=== PATIENT | female | born 1975 | race American Indian/Alaskan Native ===

== ENCOUNTER 2016-09-25 09:36 | Emergency (ER) | payer MEDICAID, OTHER ==
--- NOTE | 2016-09-25 09:58 | Emergency Department Report ---
Chief Complaint: Abdominal Pain Stated Complaint: POSS MISCARRIAGE Time Seen by Provider: 09/25/16 09:53 - HPI History of Present Illness: Patient is a 41-year-old female presents to the ED complaining of brownish vaginal discharge. Patient states LMP period as 08/12/2016. Patient states she had a confirmed on September 21 measuring about 4 weeks gestation. Patient states vaginal spotting began Sunday and got worse on Sunday.She did admit to mild nausea one episode of vomiting that happened Sunday. She denies suicidal chills/abdominal pain/dizziness/20 vision - ROS Review of Systems: Resident HPI - Exam Vital Signs: Vital Signs 09/25/16 09:41 Temperature 98.2 F Pulse Rate 73 Respiratory 20 Rate Blood Pressure 116/77 O2 Sat by Pulse 100 Oximetry Physical Exam: GENERAL: Alert and oriented x3, no apparent distress, Normal Gait, atraumatic. HEART: S1, S2 present, regular rate and rhythm without murmur ABDOMEN: No organomegaly was noted,Positive bowel sounds, soft, and non- distended. . Nontender to palpation on all Quadrants, NO CVA tenderness. MSE screening note: Focused history and physical exam performed. Due to findings the following was ordered: ED Medical Decision Making - Medical Decision Making Urinalysis, tests ordered. Ultrasound ordered. Patient waiting to be seen by a provider. ED Disposition for MSE Condition: Stable Instructions: Abdominal Pain (ED)
[2016-09-25 10:32] LABS: Basophils % (Auto) 0.3 % (0.0-1.8); Eosinophils % (Auto) 2.3 % (0.0-4.3); Hematocrit 40.3 % (30.3-42.9); Hemoglobin 13.5 gm/dl (10.1-14.3); Mean Corpuscular HGB Conc 33 % (30-34); Mean Corpuscular Hemoglobin 31 pg (28-32); Mean Corpuscular Volume 93 fl (79-97); Platelet Count 259 K/mm3 (140-440); Red Blood Count 4.32 M/mm3 (3.65-5.03); Red Cell Distribution Width 14.3 % (13.2-15.2); White Blood Count 9.6 K/mm3 (4.5-11.0)
[2016-09-25 10:40] LABS: Alanine Aminotransferase 29 units/L (7-56); Albumin 4.2 g/dL (3.9-5); Albumin/Globulin Ratio 1.3 %; Alkaline Phosphatase 49 units/L (35-129); Anion Gap 18 mmol/L; Blood Urea Nitrogen 6 mg/dL (7-17); Carbon Dioxide 23 mmol/L (22-30); Chloride 99.7 mmol/L (98-107); Glucose 125 mg/dL (65-100); Lipase 24 units/L (13-60); Potassium 3.5 mmol/L (3.6-5.0); Sodium 137 mmol/L (137-145); Total Protein 7.4 g/dL (6.3-8.2)
[2016-09-25 10:43] LABS: Bilirubin,Urine NEG (Negative); Blood,Urine NEG (Negative); Ketones,Urine NEG (Negative); Leukocyte Esterase,Urine SM (Negative); Mucus,Urine FEW /HPF; Nitrite,Urine NEG (Negative); Protein,Urine <15 mg/dL mg/dL (Negative); Urobilinogen,Urine < 2.0 mg/dL (<2.0)
--- NOTE | 2016-09-25 12:45 | Ultrasound Report ---
ULTRASOUND OB LESS THAN 14 WEEKS FETUS ULTRASOUND OB TRANSVAGINAL HISTORY: Vaginal bleeding, beta-hCG level 6070. TECHNIQUE: Transabdominal and transvaginal ultrasound with color doppler interrogation. The uterus measures 12 x 6 x 8 cm. A large submucosal fibroid in the right lateral wall measures 6.2 x 4.2 x 3.6 cm. The endometrial stripe is poorly imaged secondary to the large fibroid. The endometrium appears to measure approximately 1 cm in thickness. No intrauterine or heart tones could be demonstrated during this exam. The right ovary measures 4.1 x 2.1 x 2.7 cm. The left ovary measures 2.8 x 1.8 x 3.0 cm. No adnexal cyst or mass is identified. No pelvic fluid collection. IMPRESSION: No intrauterine is detected on ultrasound. The endometrial stripe is poorly imaged secondary to a large submucosal fibroid in the right lateral wall. This may represent a spontaneous . Close interval followup is recommended.
[2016-09-25 19:00] VITALS: BP 117/72
--- NOTE | 2016-09-27 21:02 | Emergency Department Report ---
Entered by ARTIS BRYANT, acting as scribe for TAM PAIGE PA. HPI - General Chief Complaint: Abdominal Pain Time Seen by Provider: 09/25/16 09:53 - HPI HPI: 41-year-old female that is about 4 weeks with no significant PMHx presents to the ED c/o brownish vaginal discharge for 3 days. Patient reports associated vaginal spotting that began 3 days ago, worsening 2 days ago and mild 3/10 lower pelvic cramping. She also reports mild nausea and one episode of vomiting 2 days ago, but she denies any vomiting today, fever, chills, chest pain, SOB, abdominal pain, dizziness, and vision changes. Patient states she had a confirmed on September 21, 2016 measuring about 4 weeks in gestation. LMP 08/12/2016. [facility] ED Past Medical Hx - Past Medical History Previous Medical History?: No - Surgical History Past Surgical History?: No Additional Surgical History: c section 2005 - Social History Smoking Status: Current Every Day Smoker Substance Use Type: None - Medications Home Medications: Home Medications Medication Instructions Recorded Confirmed Last Taken Type Naproxen Sodium (Nf) [Anaprox DS] 550 mg PO BID PRN #20 tablet 02/24/13 Unknown Rx Fluconazole [Diflucan TAB] 100 mg PO QDAY #1 tablet 09/25/16 Unknown Rx Nitrofurantoin [place]/M-Cryst 100 mg PO Q12HR #10 capsule 09/25/16 Unknown Rx [Macrobid CAP] ED Review of Systems ROS: Stated complaint: POSS MISCARRIAGE Other details as noted in HPI Comment: All other systems reviewed and negative Constitutional: denies: chills, fever Eyes: denies: eye pain, eye discharge, vision change ENT: denies: ear pain, throat pain Respiratory: denies: cough, shortness of breath, wheezing Cardiovascular: denies: chest pain, palpitations Endocrine: no symptoms reported Gastrointestinal: nausea (mild). denies: abdominal pain, vomiting, diarrhea Genitourinary: discharge (brown), other (mild lower pelvic cramping). denies: urgency, dysuria Musculoskeletal: denies: back pain, joint swelling, arthralgia Skin: denies: rash, lesions Neurological: denies: headache, weakness, paresthesias Physical Exam - Physical Exam Vital Signs: Vital Signs 09/25/16 09:41 Temperature 98.2 F Pulse Rate 73 Respiratory 20 Rate Blood Pressure 116/77 O2 Sat by Pulse 100 Oximetry General: GENERAL: Patient is alert and oriented x 3. No apparent distress, normal gait, atraumatic. Physical Exam: HEAD: Head is normocephalic and atraumatic. EYES: Extraocular movements are intact. EARS: Symmetrical, atraumatic, non tender. NOSE: Nose symmetrical, nontender. Nares appeared normal. MOUTH:Mouth is well hydrated and without lesions. NECK: Supple. Non edematous, no carotid bruits. No lymphadenopathy or thyromegaly. LUNGS: Symmetrical with respiration. No wheezing, rales or crackles, CTAB. HEART: Regular rate and rhythm with normal S1/S2 present. No murmurs, rubs, or gallops. GENITOURINARY: External genitalia without erythema, exudate or discharge. Vaginal vault is without discharge. Cervix is of normal color without lesion. Cervical OS is closed. No bleeding noted. Uterus is noted to be of normal size and nontender. No cervical motion tenderness. No masses are palpated. The adnexa are without masses or tenderness. ABDOMEN: Soft, nondistended. Nontender to palpation on all quadrants. No organomegaly was noted,Positive bowel sounds, soft, and non-distended. No CVA tenderness. EXTREMITIES/MUSCULOSKELETAL: ROM intact, 2+ pulses in UE/LE, no pitting edema SKIN: Warm and dry. No lesions, ulceration or induration present NEUROLOGIC: No focal deficit. ED Course Vital Signs 09/25/16 09:41 Temperature 98.2 F Pulse Rate 73 Respiratory 20 Rate Blood Pressure 116/77 O2 Sat by Pulse 100 Oximetry ED Medical Decision Making - Lab Data Result diagrams: 09/25/16 09:57 09/25/16 09:57 Lab Results 09/25/16 09/25/16 09/25/16 Range/Units 09:57 09:57 09:57 WBC 9.6 (4.5-11.0) K/mm3 RBC 4.32 (3.65-5.03) M/mm3 Hgb 13.5 (10.1-14.3) gm/dl Hct 40.3 (30.3-42.9) % MCV 93 (79-97) fl MCH 31 (28-32) pg MCHC 33 (30-34) % RDW 14.3 (13.2-15.2) % Plt Count 259 (140-440) K/mm3 Lymph % (Auto) 27.6 (13.4-35.0) % [place] % (Auto) 5.7 (0.0-7.3) % Eos % (Auto) 2.3 (0.0-4.3) % Baso % (Auto) 0.3 (0.0-1.8) % Lymph # 2.7 (1.2-5.4) K/mm3 [place] # 0.6 (0.0-0.8) K/mm3 Eos # 0.2 (0.0-0.4) K/mm3 Baso # 0.0 (0.0-0.1) K/mm3 Seg Neutrophils % 64.1 (40.0-70.0) % Seg Neutrophils # 6.2 (1.8-7.7) K/mm3 Sodium 137 (137-145) mmol/L Potassium 3.5 L (3.6-5.0) mmol/L Chloride 99.7 (98-107) mmol/L Carbon Dioxide 23 (22-30) mmol/L Anion Gap 18 mmol/L BUN 6 L (7-17) mg/dL Creatinine 0.6 L (0.7-1.2) mg/dL Estimated GFR > 60 ml/min BUN/Creatinine Ratio 10.00 % Glucose 125 H (65-100) mg/dL Calcium 9.0 (8.4-10.2) mg/dL Total Bilirubin 0.30 (0.1-1.2) mg/dL AST 23 (5-40) units/L ALT 29 (7-56) units/L Alkaline Phosphatase 49 (35-129) units/L Total Protein 7.4 (6.3-8.2) g/dL Albumin 4.2 (3.9-5) g/dL Albumin/Globulin Ratio 1.3 % Lipase 24 (13-60) units/L HCG, Qual Positive (Negative) HCG, Quant (0-4) mIU/mL Urine Color (Yellow) Urine Turbidity (Clear) Urine pH (5.0-7.0) Ur Specific [place] (1.003-1.030) Urine Protein (Negative) mg/dL Urine Glucose (UA) (Negative) mg/dL Urine Ketones (Negative) mg/dL Urine Blood (Negative) Urine Nitrite (Negative) Urine Bilirubin (Negative) Urine Urobilinogen (<2.0) mg/dL Ur Leukocyte Esterase (Negative) Urine WBC (Auto) (0.0-6.0) /HPF Urine RBC (Auto) (0.0-6.0) /HPF U Epithel Cells (Auto) (0-13.0) /HPF Urine Mucus /HPF 09/25/16 09/25/16 Range/Units 09:58 10:06 WBC (4.5-11.0) K/mm3 RBC (3.65-5.03) M/mm3 Hgb (10.1-14.3) gm/dl Hct (30.3-42.9) % MCV (79-97) fl MCH (28-32) pg MCHC (30-34) % RDW (13.2-15.2) % Plt Count (140-440) K/mm3 Lymph % (Auto) (13.4-35.0) % [place] % (Auto) (0.0-7.3) % Eos % (Auto) (0.0-4.3) % Baso % (Auto) (0.0-1.8) % Lymph # (1.2-5.4) K/mm3 [place] # (0.0-0.8) K/mm3 Eos # (0.0-0.4) K/mm3 Baso # (0.0-0.1) K/mm3 Seg Neutrophils % (40.0-70.0) % Seg Neutrophils # (1.8-7.7) K/mm3 Sodium (137-145) mmol/L Potassium (3.6-5.0) mmol/L Chloride (98-107) mmol/L Carbon Dioxide (22-30) mmol/L Anion Gap mmol/L BUN (7-17) mg/dL Creatinine (0.7-1.2) mg/dL Estimated GFR ml/min BUN/Creatinine Ratio % Glucose (65-100) mg/dL Calcium (8.4-10.2) mg/dL Total Bilirubin (0.1-1.2) mg/dL AST (5-40) units/L ALT (7-56) units/L Alkaline Phosphatase (35-129) units/L Total Protein (6.3-8.2) g/dL Albumin (3.9-5) g/dL Albumin/Globulin Ratio % Lipase (13-60) units/L HCG, Qual (Negative) HCG, Quant 6070 H (0-4) mIU/mL Urine Color Yellow (Yellow) Urine Turbidity Clear (Clear) Urine pH 6.0 (5.0-7.0) Ur Specific [place] 1.010 (1.003-1.030) Urine Protein <15 mg/dl (Negative) mg/dL Urine Glucose (UA) Neg (Negative) mg/dL Urine Ketones Neg (Negative) mg/dL Urine Blood Neg (Negative) Urine Nitrite Neg (Negative) Urine Bilirubin Neg (Negative) Urine Urobilinogen < 2.0 (<2.0) mg/dL Ur Leukocyte Esterase Sm (Negative) Urine WBC (Auto) 2.0 (0.0-6.0) /HPF Urine RBC (Auto) 1.0 (0.0-6.0) /HPF U Epithel Cells (Auto) 1.0 (0-13.0) /HPF Urine Mucus Few /HPF - Radiology Data Radiology results: report reviewed, image reviewed LTRASOUND OB LESS THAN 14 WEEKS FETUS ULTRASOUND OB TRANSVAGINAL HISTORY: Vaginal bleeding, beta-hCG level 6070. TECHNIQUE: Transabdominal and transvaginal ultrasound with color doppler interrogation. The uterus measures 12 x 6 x 8 cm. A large submucosal fibroid in the right lateral wall measures 6.2 x 4.2 x 3.6 cm. The endometrial stripe is poorly imaged secondary to the large fibroid. The endometrium appears to measure approximately 1 cm in thickness. No intrauterine or heart tones could be demonstrated during this exam. The right ovary measures 4.1 x 2.1 x 2.7 cm. The left ovary measures 2.8 x 1.8 x 3.0 cm. No adnexal cyst or mass is identified. No pelvic fluid collection. IMPRESSION: No intrauterine is detected on ultrasound. The endometrial stripe is poorly imaged secondary to a large submucosal fibroid in the right lateral wall. This may represent a spontaneous . Close interval followup is recommended. Transcribed By: TTR Dictated By: COLEMAN HOWE JR, MD Electronically Authenticated By: COLEMAN HOWE JR, MD Signed Date/Time: 09/25/16 1240 - Medical Decision Making 41-year-old female presents with complete miscarriage/ early IUP ED course: UA, test and ultrasound ordered and sent in for patient. Transvaginal ultrasound shows- see reported above Patient is not ill-appearing. Discussed the need for close monitoring. Discussed with pt can not rule out ectopic . Discussed with patient to follow-up in 2-3 days for hCG Quant and repeat ultrasound in 1 week Discussed the follow-up for an OB as referred. Discuss her symptoms return or worsen to return to the ED Patient states understanding and will follow instructions. Vital signs stable. Patient is in no acute distress. Critical care attestation.: If time is entered above; I have spent that time in minutes in the direct care of this critically ill patient, excluding procedure time. ED Disposition Clinical Impression: Spontaneous , UTI (urinary tract infection) Disposition: - TO HOME OR SELFCARE Is pt being admited?: No Does the pt Need Aspirin: No Condition: Stable Instructions: Ectopic (ED), Spontaneous Miscarriage (ED), Threatened Miscarriage (ED), (ED), Urinary Tract Infection in Women (ED), Abdominal Pain (ED) Additional Instructions: Follow-up with [facility] as discussed in 2 days for repeat Quant Repeat ultrasound in 1 week. If any signs of abdominal pain return to ED. Taken medication as prescribed Prescriptions: Fluconazole [Diflucan TAB] 100 mg PO QDAY #1 tablet Nitrofurantoin [place]/M-Cryst [Macrobid CAP] 100 mg PO Q12HR #10 capsule Referrals: PRIMARY CARE, [Primary Care Provider] - 3-5 Days ROX CASAS MD [Referring] - 3-5 Days MARISEL CASAS MD [Referring] - 3-5 Days XAVIER JERNIGAN MD [Referring] - 3-5 Days ANTHONY JERNIGAN MD [Staff Physician] - 3-5 Days JENNIFER JERNIGAN MD [Referring] - 3-5 Days Forms: Work/School Release Form(ED) Time of Disposition: 18:51 This documentation as recorded by the MANNY singh JASMINE,accurately reflects the service I personally performed and the decisions made by ,TAM PAIGE PA.
== END 2016-09-25 19:03 | disposition home or self-care (01) ==
LOC: ED 09:36
DX: O03.9 Complete or unspecified spontaneous abortion without complication (principal); O23.41 Unspecified infection of urinary tract in pregnancy, first trimester; O99.331 Smoking (tobacco) complicating pregnancy, first trimester; Z3A.01 Less than 8 weeks gestation of pregnancy
CPT/HCPCS: 36415; 76801; 76817; 80053; 81001; 83690; 84702; 84703; 85025; 99284